=== PATIENT | male | born 1960 | race Two or more races ===

== ENCOUNTER 2024-11-07 10:56 | Emergency (ER) | payer OTHER ==
[~2024-11-07] VITALS: Ht 175.3 cm; Wt 81.6 kg
[2024-11-07 11:15] LABS: BASOPHILS % (AUTO) 0.4 % (0.0-2.0); EOSINOPHILS # (AUTO) 0.9 K/uL (0.0-0.7); EOSINOPHILS % (AUTO) 9.3 % (0.0-7.0); LYMPHOCYTES # (AUTO) 1.1 K/uL (0.8-4.8); LYMPHOCYTES % (AUTO) 11.9 % (20.5-51.5); MEAN CORPUSCULAR HGB CONC 33 g/dL (32.5-36.3); MEAN CORPUSCULAR VOLUME 87.3 fL (73.0-96.2); MONOCYTES # (AUTO) 0.5 K/uL (0.1-1.30); MONOCYTES % (AUTO) 5.1 % (0.0-11.0); NEUTROPHILS % (AUTO) 73.3 % (38.5-71.5); PLATELET COUNT (AUTO) 349 K/uL (152-348); RED BLOOD CELL COUNT(AUTO) 4.13 MIL/uL (4.06-5.63); RED CELL DISTRIBUTION WIDTH 14.6 % (12.1-16.2); WHITE BLOOD COUNT (AUTO) 9.6 K/uL (3.6-10.2)
[2024-11-07 11:26] LABS: DIFFERENTIAL COMMENT 1
[2024-11-07 11:27] LABS: CALCIUM 8.9 mg/dL (8.5-10.1); CARBON DIOXIDE 30 mmol/L (21-32); CHLORIDE 102 mmol/L (98-107); CREATININE 0.9 mg/dL (0.6-1.3); GLUCOSE 206 mg/dL (74-106); POTASSIUM 4.7 mmol/L (3.5-5.1); SODIUM SERUM 140 mmol/L (136-145); UREA NITROGEN, BLOOD 13 mg/dL (7-18)
[2024-11-07] MEDS: IV NORMAL SALINE 1000 ML BAG IV ONE (11:28)
[2024-11-07] MEDS ORDERED: LACT-239 PO (11:36)
[2024-11-07] MEDS ORDERED: BACL5TAB PO (11:36)
[2024-11-07] MEDS ORDERED: CALC215T4 PO (11:36)
[2024-11-07] MEDS ORDERED: METF-442 PO (11:36)
[2024-11-07] MEDS ORDERED: GLIM4TAB37 PO (11:36)
[2024-11-07] MEDS ORDERED: PIOG15TA8 PO (11:36)
[2024-11-07] MEDS ORDERED: POLY119P2 PO (11:36)
[2024-11-07] MEDS ORDERED: MELA5TAB20 PO (11:36)
[2024-11-07] MEDS ORDERED: DOCU100C36 PO (11:36)
[2024-11-07] MEDS ORDERED: SITA100T PO (11:36)
[2024-11-07] MEDS ORDERED: LORA10TA7 PO (11:36)
[2024-11-07] MEDS ORDERED: PYRI100T10 PO (11:36)
[2024-11-07] MEDS ORDERED: AMIT25TA9 PO (11:36)
[2024-11-07] MEDS ORDERED: ATOR10TA PO (11:36)
[2024-11-07] MEDS ORDERED: BISM525O18 PO (11:36)
[2024-11-07 13:06] LABS: *BILIRUBIN,URIN NEGATIVE (NEGATIVE); *BLOOD, URINE NEGATIVE (NEGATIVE); *CLARITY,URINE CLEAR (CLEAR); *COLOR,URINE YELLOW (YELLOW); *KETONES,URINE NEGATIVE (NEGATIVE); *PROTEIN,URINE NEGATIVE (NEGATIVE); *UROBILINOGEN,URINE 0.2 E.U./dl (NORMAL); LEUKOCYTE ESTERASE ,URINE NEGATIVE (NEGATIVE); NITRITE, URINE NEGATIVE (NEGATIVE); UGLUCOSE NEGATIVE (NEGATIVE)
[2024-11-07 13:44] VITALS: BP 129/77; TEMP 97.6; O2SAT 97
== END 2024-11-07 13:45 | disposition home or self-care (01) ==
LOC: ER 10:56
DX: R55 Syncope and collapse (principal); E86.0 Dehydration; R07.9 Chest pain, unspecified; E11.9 Type 2 diabetes mellitus without complications; E78.5 Hyperlipidemia, unspecified; Z79.84 Long term (current) use of oral hypoglycemic drugs; Z79.899 Other long term (current) drug therapy
CPT/HCPCS: 99285; 96360; 71045; 80048; 81003; 82962; 84443; 85025; 84484; 36415; 93005; J7040; A4606; A4663